=== PATIENT | male | born 1980 | race African-American/Black ===

== ENCOUNTER 2019-04-29 20:03 | Emergency (ER) | payer MEDICAID ==
[~2019-04-29] VITALS: Ht 162.6 cm; Wt 48.0 kg
[~2019-04-29 20:03] MED LIST: ALBU17AE26
[2019-04-29 22:30] VITALS: BP 130/80
== END 2019-04-29 23:35 | disposition left against medical advice (07) ==
LOC: ER 20:03
DX: R53.1 Weakness (principal); R42 Dizziness and giddiness; R51 Headache; Z53.21 Procedure and treatment not carried out due to patient leaving prior to being seen by health care provider

== ENCOUNTER 2019-11-06 13:28 | Emergency (ER) | payer MEDICAID ==
[~2019-11-06] VITALS: Ht 172.7 cm; Wt 68.0 kg
[2019-11-06] MEDS ORDERED: LORAZEPAM 2MG/ML CPJ IM ONE (14:00)
[2019-11-06 15:06] LABS: BASOPHILS % 0.7 % (0.0-2.0); EOSINOPHILS % 0.4 % (0.0-5.0); HEMATOCRIT. 38.5 % (42.0-52.0); HEMOGLOBIN. 13.5 g/dL (14.0-18.0); LYMPHOCYTES % 14.4 % (20.0-50.0); MEAN CORPUSCULAR HEMOGLOBIN 32.1 pg (28.0-32.0); MEAN CORPUSCULAR VOLUME 91.3 fL (80.0-94.0); MEAN PLATELET VOLUME 7.4 fl (7.4-10.4); MONOCYTES % 7.5 % (2.0-8.0); PLATELET 287 x1000/uL (130-400); RED BLOOD CELL COUNT 4.22 mill/uL (4.7-6.1); RED CELL DISTRIBUTION WIDTH 13.7 % (11.6-14.6)
[2019-11-06 15:09] LABS: CHLORIDE 105 mEq/L (98-107)
[2019-11-06 15:14] LABS: ETHANOL BLOOD < 10 mg/dL
[2019-11-06] MEDS ORDERED: POTASSIUM CHLORIDE 20MEQ TABLET SR PO ONE (15:15)
[2019-11-06 19:15] LABS: CLARITY URINE CLEAR (CLEAR); COLOR URINE DARK YELLOW (YELLOW); KETONES URINE 1+ (NEGATIVE); LEUKOCYTE ESTERASE URINE NEGATIVE (NEGATIVE); NITRITE URINE NEGATIVE (NEGATIVE); OCCULT BLOOD URINE TRACE (NEGATIVE); PROTEIN URINE TRACE (NEGATIVE); SPECIFIC GRAVITY URINE 1.029 (1.005-1.030)
[2019-11-06 19:27] LABS: *AMPHETAMINES SCREEN URINE PRESUMTIVE POSITIVE (NEGATIVE); *BARBITURATES SCREEN URINE NEGATIVE (NEGATIVE); *BENZODIAZEPINES SCREEN URINE NEGATIVE (NEGATIVE); *COCAINE SCREEN URINE NEGATIVE (NEGATIVE); METHADONE URINE SCREEN NEGATIVE (NEGATIVE); OPIATES URINE SCREEN NEGATIVE (NEGATIVE); PHENCYCLIDINE URINE SCREEN NEGATIVE (NEGATIVE)
[2019-11-06 19:28] LABS: CANNABINOID URINE SCREEN NEGATIVE (NEGATIVE)
[2019-11-07 11:32] VITALS: BP 110/80
== END 2019-11-07 11:54 | disposition home or self-care (01) ==
LOC: ER 13:38
DX: F29 Unspecified psychosis not due to a substance or known physiological condition (principal); E87.6 Hypokalemia; J45.909 Unspecified asthma, uncomplicated
CPT/HCPCS: 36415; 80053; 80305; 80307; 80320; 80329; 81003; 85025; 96372; 99285; J2060; G0480

== ENCOUNTER 2020-03-05 18:37 | Emergency (ER) | payer MEDICAID ==
[~2020-03-05] VITALS: Ht 162.6 cm; Wt 59.0 kg
[2020-03-05 20:37] LABS: BASOPHILS % 0.7 % (0.0-2.0); EOSINOPHILS % 0.9 % (0.0-5.0); HEMATOCRIT. 43.6 % (42.0-52.0); HEMOGLOBIN. 14.2 g/dL (14.0-18.0); LYMPHOCYTES % 19.3 % (20.0-50.0); MONOCYTES % 6.2 % (2.0-8.0); NEUTROPHILS % 72.9 % (40.0-76.0); PLATELET 271 x1000/uL (130-400); RED BLOOD CELL COUNT 4.74 mill/uL (4.7-6.1); RED CELL DISTRIBUTION WIDTH 14.5 % (11.6-14.6)
[2020-03-05 20:38] LABS: CLARITY URINE CLEAR (CLEAR); COLOR URINE YELLOW (YELLOW); KETONES URINE NEGATIVE (NEGATIVE); LEUKOCYTE ESTERASE URINE 1+ (NEGATIVE); NITRITE URINE NEGATIVE (NEGATIVE); OCCULT BLOOD URINE NEGATIVE (NEGATIVE); PROTEIN URINE NEGATIVE (NEGATIVE); SPECIFIC GRAVITY URINE 1.023 (1.005-1.030); UROBILINOGEN URINE 0.2 E.U./dL (0.2-1.0)
[2020-03-05 20:44] LABS: CHLORIDE 109 mEq/L (98-107)
[2020-03-05 20:47] LABS: *AMPHETAMINES SCREEN URINE PRESUMTIVE POSITIVE (NEGATIVE); *BARBITURATES SCREEN URINE NEGATIVE (NEGATIVE); *BENZODIAZEPINES SCREEN URINE NEGATIVE (NEGATIVE); *COCAINE SCREEN URINE NEGATIVE (NEGATIVE); METHADONE URINE SCREEN NEGATIVE (NEGATIVE); OPIATES URINE SCREEN NEGATIVE (NEGATIVE)
[2020-03-05 20:48] LABS: CANNABINOID URINE SCREEN NEGATIVE (NEGATIVE); PHENCYCLIDINE URINE SCREEN NEGATIVE (NEGATIVE)
[2020-03-05 20:49] LABS: ETHANOL BLOOD < 10 mg/dL
[2020-03-07] MEDS: QUETIAPINE FUMARATE 25MG TABLET PO SCH (14:32)
[2020-03-08] MEDS: QUETIAPINE FUMARATE 25MG TABLET PO SCH (12:00)
[2020-03-08 16:00] VITALS: BP 113/82
== END 2020-03-08 19:37 | disposition home or self-care (01) ==
LOC: ER 18:37
DX: F15.10 Other stimulant abuse, uncomplicated (principal); U07.1 COVID-19; R45.1 Restlessness and agitation; R45.850 Homicidal ideations; F20.9 Schizophrenia, unspecified; F31.9 Bipolar disorder, unspecified; J45.909 Unspecified asthma, uncomplicated; Z59.0 Homelessness; Z75.1 Person awaiting admission to adequate facility elsewhere
CPT/HCPCS: 36415; 80053; 80305; 80320; 81003; 85025; 87635; 99283; G0480

== ENCOUNTER 2021-01-14 08:52 | Emergency (ER) | payer MEDICAID, OTHER ==
[~2021-01-14] VITALS: Ht 162.6 cm; Wt 70.0 kg
[2021-01-14 09:02] VITALS: BP 135/95
[2021-01-14] MEDS ORDERED: QUET400T MT (09:24)
[2021-01-14] MEDS ORDERED: OLAN10TA32 MT (09:24)
[2021-01-14] MEDS ORDERED: BENZ100C86 MT (09:24)
== END 2021-01-14 09:32 | disposition home or self-care (01) ==
LOC: ER 08:52
DX: Z76.0 Encounter for issue of repeat prescription (principal); J45.909 Unspecified asthma, uncomplicated; Z86.59 Personal history of other mental and behavioral disorders
CPT/HCPCS: 99281; 99283

== ENCOUNTER 2021-10-17 02:17 | Emergency (ER) | payer OTHER ==
[~2021-10-17] VITALS: Ht 162.6 cm; Wt 55.0 kg
[~2021-10-17 02:17] MED LIST changes: +BENZ100C86 MT; +OLAN10TA32 MT; +QUET400T MT
[2021-10-17 02:24] VITALS: BP 156/102
[2021-10-17] MEDS ORDERED: MIRT-89 PO (06:53)
[2021-10-17] MEDS ORDERED: QUET300T2 PO (06:53)
[2021-10-17] MEDS ORDERED: PROM5SYR PO (06:53)
[2021-10-17] MEDS ORDERED: PROM6.254 PO (06:55)
== END 2021-10-17 07:00 | disposition home or self-care (01) ==
LOC: ER 02:17
DX: Z76.0 Encounter for issue of repeat prescription (principal); Z20.822 Contact with and (suspected) exposure to COVID-19; F20.9 Schizophrenia, unspecified; J45.909 Unspecified asthma, uncomplicated; F31.9 Bipolar disorder, unspecified; F15.10 Other stimulant abuse, uncomplicated
CPT/HCPCS: 87426; 99283

== ENCOUNTER 2022-05-25 00:56 | Emergency (ER) | payer MEDICAID, OTHER ==
[~2022-05-25] VITALS: Ht 162.6 cm; Wt 59.0 kg
[~2022-05-25 00:56] MED LIST changes: +MIRT-89 PO; +PROM6.254 PO; +QUET300T2 PO
[2022-05-25] MEDS ORDERED: LORAZEPAM 2MG/ML CPJ IM STA (01:37)
[2022-05-25] MEDS ORDERED: HALOPERIDOL LACTATE 5MG/ML VIAL IM STA (01:37)
[2022-05-25] MEDS ORDERED: DIPHENHYDRAMINE 50MG/ML VIAL IM STA (01:37)
[2022-05-25 02:14] LABS: BASOPHILS % 0.7 % (0.0-2.0); EOSINOPHILS % 0.4 % (0.0-5.0); HEMATOCRIT. 44.5 % (42.0-52.0); HEMOGLOBIN. 15.3 g/dL (14.0-18.0); LYMPHOCYTES % 17.5 % (20.0-50.0); MEAN CORPUSCULAR HEMOGLOBIN 30.9 pg (28.0-32.0); MEAN CORPUSCULAR VOLUME 90.2 fL (80.0-94.0); MEAN PLATELET VOLUME 7.2 fl (7.4-10.4); MONOCYTES % 11.2 % (2.0-8.0); NEUTROPHILS % 70.2 % (40.0-76.0); PLATELET 374 x1000/uL (130-400); RED BLOOD CELL COUNT 4.94 mill/uL (4.7-6.1); RED CELL DISTRIBUTION WIDTH 14.1 % (11.6-14.6)
[2022-05-25 02:24] LABS: CHLORIDE 103 mEq/L (98-107)
[2022-05-25 02:40] LABS: CREATINE KINASE 371 IU/L (39-308); ETHANOL BLOOD < 10 mg/dL
[2022-05-25] MEDS ORDERED: ALBU6.7H3 INH (10:58)
[2022-05-25] MEDS ORDERED: QUET300T2 PO (10:58)
[2022-05-25] MEDS ORDERED: PROM6.254 PO (10:59)
[2022-05-25 11:04] VITALS: BP 110/66
== END 2022-05-25 11:05 | disposition home or self-care (01) ==
LOC: ER 01:03
DX: F20.89 Other schizophrenia (principal); R45.850 Homicidal ideations; F15.10 Other stimulant abuse, uncomplicated; Z20.822 Contact with and (suspected) exposure to COVID-19; Z78.1 Physical restraint status
CPT/HCPCS: 36415; 80053; 80307; 80320; 80329; 82550; 84443; 85025; 87426; 96372; 99285; C9803; J1200; J1630; J2060; Z7610; G0480

== ENCOUNTER 2022-10-12 18:51 | Emergency (ER) | payer MEDICAID, OTHER ==
[~2022-10-12] VITALS: Ht 162.6 cm; Wt 125.0 kg
[~2022-10-12 18:51] MED LIST changes: +ALBU6.7H3 INH; +PROM6.2525 PO; -PROM6.254 PO
[2022-10-12 19:22] VITALS: O2SAT 100
[2022-10-12 20:41] LABS: BASOPHILS % 0.9 % (0.0-2.0); EOSINOPHILS % 3.7 % (0.0-5.0); HEMATOCRIT. 38.8 % (42.0-52.0); HEMOGLOBIN. 12.9 g/dL (14.0-18.0); LYMPHOCYTES % 26.1 % (20.0-50.0); MEAN CORPUSCULAR HEMOGLOBIN 30.9 pg (28.0-32.0); MEAN CORPUSCULAR HGB CONC 33.3 g/dL (31.0-37.0); MEAN CORPUSCULAR VOLUME 92.8 fL (80.0-94.0); MEAN PLATELET VOLUME 7.1 fl (7.4-10.4); MONOCYTES % 14.9 % (2.0-8.0); NEUTROPHILS % 54.4 % (40.0-76.0); PLATELET 254 x1000/uL (130-400); RED BLOOD CELL COUNT 4.18 mill/uL (4.7-6.1); RED CELL DISTRIBUTION WIDTH 14.7 % (11.6-14.6); WHITE BLOOD COUNT 4.5 x1000/uL (4.5-11.0)
[2022-10-12 20:44] LABS: CHLORIDE 107 mEq/L (98-107); INDEX HEMOLYSI 1 (1-3); INDEX ICTERIC 1 (1-4); INDEX LIPEMIC 1 (1-3); POTASSIUM 3.4 mEq/L (3.5-5.1); SODIUM 140 mEq/L (136-145)
[2022-10-12 20:46] LABS: *AMPHETAMINES SCREEN URINE PRESUMTIVE POSITIVE (NEGATIVE); *BARBITURATES SCREEN URINE NEGATIVE (NEGATIVE); *BENZODIAZEPINES SCREEN URINE NEGATIVE (NEGATIVE); *COCAINE SCREEN URINE NEGATIVE (NEGATIVE); CANNABINOID URINE SCREEN NEGATIVE (NEGATIVE); ECSTASY MDMA SCREEN URINE NEGATIVE (NEGATIVE); METHADONE URINE SCREEN NEGATIVE (NEGATIVE); OPIATES URINE SCREEN NEGATIVE (NEGATIVE); PHENCYCLIDINE URINE SCREEN NEGATIVE (NEGATIVE)
[2022-10-12 20:52] LABS: ACETAMINOPHEN <2 ug/mL ug/mL (10-30); ALANINE AMINOTRANSFERASE 54 IU/L (13-61); ASPARTATE AMINOTRANSFERASE 27 IU/L (15-37); BILIRUBIN TOTAL 0.5 mg/dL (0.1-1.0); CALCIUM 8.9 mg/dL (8.5-10.1); CARBON DIOXIDE 29 mEq/L (21-32); CREATININE 1.1 mg/dL (0.6-1.3); ETHANOL BLOOD < 10 mg/dL (-10); GLUCOSE 88 mg/dL (70-105); PROTEIN TOTAL 7.4 g/dL (6.0-8.3); UREA NITROGEN BLOOD 14 mg/dL (7-21)
[2022-10-13 20:46] VITALS: BP 105/61; PULSE 88; RESP 17; TEMP 98.4
== END 2022-10-13 21:18 ==
LOC: ER 18:51
DX: R45.850 Homicidal ideations (principal); F15.10 Other stimulant abuse, uncomplicated; Z20.822 Contact with and (suspected) exposure to COVID-19
CPT/HCPCS: 80053; 80305; 80307; 80329; 80320; 85025; 36415; 99283; 87426; C9803; G0480

== ENCOUNTER 2022-11-12 18:38 | Emergency (ER) | payer OTHER ==
[~2022-11-12] VITALS: Ht 172.7 cm; Wt 68.0 kg
[2022-11-12 18:49] VITALS: BP 147/81; PULSE 119; RESP 20; TEMP 98.3; O2SAT 99
[2022-11-12] MEDS ORDERED: PROM6.2525 MT (20:38)
[2022-11-12] MEDS ORDERED: QUET300T2 MT (20:38)
[2022-11-12] MEDS ORDERED: ALBU6.7H3 INH (20:38)
[2022-11-12] MEDS ORDERED: MIRT-111 MT (20:38)
== END 2022-11-12 21:02 | disposition home or self-care (01) ==
LOC: ER 18:38
DX: Z76.0 Encounter for issue of repeat prescription (principal); J45.909 Unspecified asthma, uncomplicated; F31.9 Bipolar disorder, unspecified; I10 Essential (primary) hypertension; F20.9 Schizophrenia, unspecified; F15.10 Other stimulant abuse, uncomplicated; Z79.899 Other long term (current) drug therapy
CPT/HCPCS: 99283

== ENCOUNTER 2022-11-21 16:33 | Emergency (ER) | payer OTHER ==
[~2022-11-21] VITALS: Ht 170.2 cm; Wt 54.5 kg
[~2022-11-21 16:33] MED LIST changes: +MIRT-111 MT; +PROM6.2525 MT; +QUET300T2 MT
[2022-11-21 16:54] VITALS: BP 174/109; PULSE 87; RESP 18; TEMP 98.7; O2SAT 100
[2022-11-21] MEDS ORDERED: ALBU6.7H3 INH (19:12)
[2022-11-21] MEDS ORDERED: PROM6.2525 PO (19:12)
== END 2022-11-21 20:54 | disposition home or self-care (01) ==
LOC: ER 16:33
DX: J45.909 Unspecified asthma, uncomplicated (principal); R05.9 Cough, unspecified; F31.9 Bipolar disorder, unspecified; I10 Essential (primary) hypertension; F20.9 Schizophrenia, unspecified; F15.90 Other stimulant use, unspecified, uncomplicated; Z76.0 Encounter for issue of repeat prescription
CPT/HCPCS: 71046; 99283

== ENCOUNTER 2022-12-03 19:59 | Emergency (ER) | payer OTHER ==
[~2022-12-03] VITALS: Ht 160 cm; Wt 58.9 kg
[~2022-12-03 19:59] MED LIST changes: -PROM6.2525 MT; -PROM6.2525 PO; +PROM6.2527 MT; +PROM6.2527 PO
[2022-12-03 20:08] VITALS: BP 154/115; PULSE 104; RESP 18; TEMP 98.7; O2SAT 100
[2022-12-03] MEDS ORDERED: ALBU6.7H15 INH (22:42)
[2022-12-03] MEDS ORDERED: AMLO2.5T2 MT (22:42)
[2022-12-03] MEDS ORDERED: PROM6.2527 MT (22:42)
[2022-12-03] MEDS ORDERED: MIRT-111 MT (22:42)
== END 2022-12-03 23:21 | disposition home or self-care (01) ==
LOC: ER 19:59
DX: Z76.0 Encounter for issue of repeat prescription (principal); J45.909 Unspecified asthma, uncomplicated; I10 Essential (primary) hypertension; F20.9 Schizophrenia, unspecified; F31.9 Bipolar disorder, unspecified; Z79.899 Other long term (current) drug therapy; F15.10 Other stimulant abuse, uncomplicated
CPT/HCPCS: 99281; 99283

== ENCOUNTER 2022-12-06 09:59 | Emergency (ER) | payer OTHER ==
[~2022-12-06] VITALS: Ht 167.6 cm; Wt 70.0 kg
[~2022-12-06 09:59] MED LIST changes: +ALBU6.7H15 INH; +AMLO2.5T2 MT
[2022-12-06 10:02] VITALS: PULSE 89; RESP 17
[2022-12-06] MEDS ORDERED: PROM6.2527 MT (10:12)
[2022-12-06 10:25] VITALS: BP 127/84; TEMP 98.6; O2SAT 100
== END 2022-12-06 10:36 | disposition home or self-care (01) ==
LOC: ER 09:59
DX: Z76.0 Encounter for issue of repeat prescription (principal); F15.10 Other stimulant abuse, uncomplicated; Z98.890 Other specified postprocedural states; Z86.59 Personal history of other mental and behavioral disorders
CPT/HCPCS: 99283

== ENCOUNTER 2022-12-22 19:42 | Emergency (ER) | payer OTHER ==
[~2022-12-22] VITALS: Ht 162.6 cm; Wt 62.0 kg
[2022-12-22 20:34] VITALS: BP 152/105; PULSE 103; RESP 14; TEMP 96.2; O2SAT 99
[2022-12-22] MEDS ORDERED: PROM6.2527 MT (23:52)
[2022-12-22] MEDS ORDERED: ALBU6.7H15 INH (23:52)
[2022-12-22] MEDS ORDERED: OLAN10TA32 MT ×2 (23:52)
[2022-12-22] MEDS ORDERED: MIRT-111 MT (23:52)
[2022-12-22] MEDS ORDERED: QUET300T2 MT ×2 (23:52)
== END 2022-12-23 00:25 | disposition home or self-care (01) ==
LOC: ER 20:23
DX: Z76.0 Encounter for issue of repeat prescription (principal); F15.10 Other stimulant abuse, uncomplicated; Z79.899 Other long term (current) drug therapy
CPT/HCPCS: 99281

== ENCOUNTER 2023-01-02 20:10 | Emergency (ER) | payer OTHER ==
[~2023-01-02 20:10] MED LIST changes: -OLAN10TA32 MT; -QUET300T2 MT
== END 2023-01-03 03:41 | disposition left against medical advice (07) ==
LOC: ER 20:10
DX: Z53.21 Procedure and treatment not carried out due to patient leaving prior to being seen by health care provider (principal)

== ENCOUNTER 2023-06-09 11:14 | Emergency (ER) | payer OTHER ==
[~2023-06-09] VITALS: Ht 162.6 cm; Wt 54.5 kg
[~2023-06-09 11:14] MED LIST changes: +AMLO2.5T45 MT; +D-ME473S50 PO; +FAMO-135 MT; +MIRT-90 MT; +QUET300T2 MT
[2023-06-09 11:29] VITALS: O2SAT 99
[2023-06-09] MEDS ORDERED: ALBU6.7H15 INH (12:09)
[2023-06-09] MEDS ORDERED: QUET300T2 PO (12:09)
[2023-06-09] MEDS ORDERED: AMLO2.5T45 MT (12:09)
[2023-06-09] MEDS ORDERED: MIRT-111 MT (12:09)
[2023-06-09] MEDS ORDERED: PROM6.2527 PO (12:09)
[2023-06-09 12:47] VITALS: BP 134/87; PULSE 84; RESP 18; TEMP 98.2
== END 2023-06-09 13:00 | disposition home or self-care (01) ==
LOC: ER 11:14
DX: F41.9 Anxiety disorder, unspecified (principal); F15.10 Other stimulant abuse, uncomplicated; J45.909 Unspecified asthma, uncomplicated; Z76.0 Encounter for issue of repeat prescription; Z79.899 Other long term (current) drug therapy; Z86.59 Personal history of other mental and behavioral disorders
CPT/HCPCS: 99281

== ENCOUNTER 2023-09-04 11:27 | Emergency (ER) | payer OTHER ==
[~2023-09-04] VITALS: Ht 162.6 cm; Wt 55.0 kg
[2023-09-04] MEDS ORDERED: PROM6.2527 MT (11:55)
[2023-09-04] MEDS ORDERED: MIRT-90 MT (11:55)
[2023-09-04] MEDS ORDERED: ALBU6.7H15 INH (11:55)
[2023-09-04] MEDS ORDERED: QUET300T2 PO (11:55)
[2023-09-04 12:06] VITALS: BP 170/112; PULSE 96; RESP 18; TEMP 98.3
[2023-09-04] MEDS ORDERED: AMLO5TAB88 PO (12:07)
== END 2023-09-04 14:08 | disposition home or self-care (01) ==
LOC: ER 11:27
DX: F99 Mental disorder, not otherwise specified (principal); I10 Essential (primary) hypertension; F41.9 Anxiety disorder, unspecified; J45.909 Unspecified asthma, uncomplicated; F31.9 Bipolar disorder, unspecified; F20.9 Schizophrenia, unspecified; F15.10 Other stimulant abuse, uncomplicated; Z79.899 Other long term (current) drug therapy; Z76.0 Encounter for issue of repeat prescription
CPT/HCPCS: 99281; 99283

== ENCOUNTER 2023-09-10 03:29 | Emergency (ER) | payer OTHER ==
[~2023-09-10 03:29] MED LIST changes: +AMLO5TAB88 PO
[2023-09-11] MEDS ORDERED: PROM6.2527 MT (08:32)
[2023-09-11] MEDS ORDERED: ALBU6.7H15 INH (08:32)
[2023-09-11] MEDS ORDERED: MIRT-89 PO (08:32)
== END 2023-09-10 05:01 | disposition left against medical advice (07) ==
LOC: ER 03:29
DX: R05.9 Cough, unspecified (principal); R06.2 Wheezing; Z53.21 Procedure and treatment not carried out due to patient leaving prior to being seen by health care provider

== ENCOUNTER 2023-09-10 23:36 | Emergency (ER) | payer OTHER ==
[2023-09-10 23:52] VITALS: PULSE 100
[2023-09-11] MEDS ORDERED: PROM6.2527 MT (08:32)
[2023-09-11] MEDS ORDERED: ALBU6.7H15 INH (08:32)
[2023-09-11] MEDS ORDERED: MIRT-89 PO (08:32)
== END 2023-09-11 01:34 | disposition left against medical advice (07) ==
LOC: ER 23:36
DX: R42 Dizziness and giddiness (principal); Z53.21 Procedure and treatment not carried out due to patient leaving prior to being seen by health care provider

== ENCOUNTER 2023-09-11 03:49 | Emergency (ER) | payer OTHER ==
[~2023-09-11] VITALS: Ht 162.6 cm; Wt 62.0 kg
[2023-09-11 03:56] VITALS: O2SAT 99
[2023-09-11 05:06] LABS: BASOPHILS % 0.7 % (0.0-2.0); EOSINOPHILS % 1.6 % (0.0-5.0); HEMATOCRIT. 47.4 % (42.0-52.0); HEMOGLOBIN. 16.1 g/dL (14.0-18.0); LYMPHOCYTES % 16.8 % (20.0-50.0); MEAN CORPUSCULAR HGB CONC 33.9 g/dL (31.0-37.0); MEAN CORPUSCULAR VOLUME 91.6 fL (80.0-94.0); MEAN PLATELET VOLUME 7.5 fl (7.4-10.4); MONOCYTES % 8.8 % (2.0-8.0); NEUTROPHILS % 72.1 % (40.0-76.0); PLATELET 336 x1000/uL (130-400); RED BLOOD CELL COUNT 5.17 mill/uL (4.7-6.1); RED CELL DISTRIBUTION WIDTH 14.6 % (11.6-14.6); WHITE BLOOD COUNT 6.2 x1000/uL (4.5-11.0)
[2023-09-11 05:15] LABS: CHLORIDE 101 mEq/L (98-107); POTASSIUM 3.7 mEq/L (3.5-5.1); SODIUM 138 mEq/L (136-145)
[2023-09-11 05:16] LABS: CARBON DIOXIDE 32 mEq/L (21-32)
[2023-09-11 05:21] LABS: CREATININE 0.9 mg/dL (0.6-1.3); GLUCOSE 103 mg/dL (70-105); UREA NITROGEN BLOOD 8 mg/dL (9-23)
[2023-09-11 05:22] LABS: TROPONIN I HIGH SENSITIVITY 4 ng/L (3.0-53)
[2023-09-11] MEDS ORDERED: PROM6.2527 MT (08:32)
[2023-09-11] MEDS ORDERED: ALBU6.7H15 INH (08:32)
[2023-09-11] MEDS ORDERED: MIRT-89 PO (08:32)
[2023-09-11 08:45] VITALS: BP 105/61; PULSE 89; RESP 16; TEMP 98.2
== END 2023-09-11 08:46 | disposition home or self-care (01) ==
LOC: ER 03:49
DX: G47.00 Insomnia, unspecified (principal); F41.9 Anxiety disorder, unspecified; J45.909 Unspecified asthma, uncomplicated; F31.9 Bipolar disorder, unspecified; F20.9 Schizophrenia, unspecified; F15.10 Other stimulant abuse, uncomplicated; Z79.899 Other long term (current) drug therapy; Z76.0 Encounter for issue of repeat prescription
CPT/HCPCS: 80048; 85025; 84484; 36415; 93005; 99284; Z7610 ×3

== ENCOUNTER 2023-10-04 18:01 | Emergency (ER) | payer OTHER ==
[~2023-10-04] VITALS: Ht 160 cm; Wt 61.0 kg
[2023-10-04 18:07] VITALS: BP 181/116; PULSE 73; RESP 20; TEMP 98.1; O2SAT 100
[2023-10-04] MEDS ORDERED: MIRT-111 MT (19:50)
[2023-10-04] MEDS ORDERED: ALBU6.7H15 INH (19:50)
[2023-10-04] MEDS ORDERED: QUET300T2 MT (19:50)
== END 2023-10-04 20:48 | disposition home or self-care (01) ==
LOC: ER 18:01
DX: Z76.0 Encounter for issue of repeat prescription (principal); J45.909 Unspecified asthma, uncomplicated; I10 Essential (primary) hypertension; Z86.59 Personal history of other mental and behavioral disorders
CPT/HCPCS: 99281

== ENCOUNTER 2023-11-18 20:47 | Emergency (ER) | payer OTHER ==
[~2023-11-18] VITALS: Ht 162.6 cm; Wt 62.0 kg
[~2023-11-18 20:47] MED LIST changes: -MIRT-111 MT; +MIRT-145 MT
[2023-11-18 20:59] VITALS: O2SAT 99
[2023-11-18 21:33] VITALS: BP 148/100; PULSE 90; TEMP 98.4; O2SAT 100
[2023-11-18] MEDS ORDERED: PROM6.2527 MT (22:14)
[2023-11-18] MEDS ORDERED: MIRT-145 MT (22:14)
[2023-11-18] MEDS ORDERED: ALBU18HF2 IH (22:14)
[2023-11-18] MEDS: LORATADINE 10MG TABLET PO SCH (22:15)
[2023-11-18] MEDS: DEXAMETHASONE 10 MG/ML VIAL IM ONE (23:12)
[2023-11-18] MEDS: DIPHENHYDRAMINE HCL/ZINC ACET 28 GM CREAM TOP STA (23:12)
[2023-11-18 23:15] VITALS: RESP 16
== END 2023-11-18 23:31 | disposition home or self-care (01) ==
LOC: ER 20:56
DX: R21 Rash and other nonspecific skin eruption (principal); F41.9 Anxiety disorder, unspecified; J45.909 Unspecified asthma, uncomplicated; F31.9 Bipolar disorder, unspecified; I10 Essential (primary) hypertension; F20.9 Schizophrenia, unspecified; F15.10 Other stimulant abuse, uncomplicated; Z79.899 Other long term (current) drug therapy; Z76.0 Encounter for issue of repeat prescription
CPT/HCPCS: 96372; 99283; J1100; Z7610

== ENCOUNTER 2023-12-04 18:13 | Emergency (ER) | payer OTHER ==
[~2023-12-04] VITALS: Ht 162.6 cm; Wt 61.0 kg
[~2023-12-04 18:13] MED LIST changes: +ALBU18HF2 IH
[2023-12-04 18:14] VITALS: BP 133/97; RESP 16; TEMP 98.4; O2SAT 100
[2023-12-04 18:22] VITALS: PULSE 118; O2SAT 100
[2023-12-04] MEDS ORDERED: DEXAMETHASONE 10 MG/ML VIAL IM ONE (20:45)
== END 2023-12-04 21:15 | disposition left against medical advice (07) ==
LOC: ER 18:13
DX: R21 Rash and other nonspecific skin eruption (principal); F15.10 Other stimulant abuse, uncomplicated; F41.9 Anxiety disorder, unspecified; I10 Essential (primary) hypertension; F31.9 Bipolar disorder, unspecified; Z79.899 Other long term (current) drug therapy; Z86.59 Personal history of other mental and behavioral disorders
CPT/HCPCS: 99281

== ENCOUNTER 2024-04-06 19:31 | Emergency (ER) | payer OTHER ==
[~2024-04-06] VITALS: Ht 162.6 cm; Wt 53.2 kg
[2024-04-06 19:45] VITALS: O2SAT 96
[2024-04-06 22:25] VITALS: BP 163/92; PULSE 122; RESP 15; TEMP 37; O2SAT 99
== END 2024-04-07 00:26 | disposition home or self-care (01) ==
LOC: ER 19:31
DX: Z76.0 Encounter for issue of repeat prescription (principal); F20.9 Schizophrenia, unspecified; I10 Essential (primary) hypertension; J45.909 Unspecified asthma, uncomplicated; F15.90 Other stimulant use, unspecified, uncomplicated; Z79.899 Other long term (current) drug therapy
CPT/HCPCS: 99281

== ENCOUNTER 2024-04-07 00:57 | Emergency (ER) | payer OTHER ==
[~2024-04-07] VITALS: Ht 162.6 cm; Wt 53.2 kg
[2024-04-07 01:03] VITALS: O2SAT 70
[2024-04-07 02:20] VITALS: BP 163/92; PULSE 96; RESP 15; TEMP 37; O2SAT 90
== END 2024-04-07 08:00 | disposition left against medical advice (07) ==
LOC: ER 00:57
DX: Z00.00 Encounter for general adult medical examination without abnormal findings (principal); Z53.21 Procedure and treatment not carried out due to patient leaving prior to being seen by health care provider
CPT/HCPCS: Z7610 ×2

== ENCOUNTER 2024-04-27 19:03 | Emergency (ER) | payer OTHER ==
[~2024-04-27] VITALS: Ht 162.6 cm; Wt 58.9 kg
[2024-04-27 19:06] VITALS: O2SAT 100
[2024-04-27 19:13] VITALS: BP 155/103; PULSE 111; RESP 16; TEMP 36.6; O2SAT 100
== END 2024-04-27 22:37 | disposition left against medical advice (07) ==
LOC: ER 19:03
DX: R05.9 Cough, unspecified (principal); J45.909 Unspecified asthma, uncomplicated; I10 Essential (primary) hypertension; F20.9 Schizophrenia, unspecified; Z53.21 Procedure and treatment not carried out due to patient leaving prior to being seen by health care provider

== ENCOUNTER 2024-05-01 19:39 | Emergency (ER) | payer OTHER ==
[~2024-05-01] VITALS: Ht 162.6 cm; Wt 59.1 kg
[2024-05-01 19:41] VITALS: O2SAT 100
[2024-05-01 20:07] VITALS: BP 134/94; PULSE 102; RESP 18; TEMP 36.8; O2SAT 100
== END 2024-05-01 19:50 | disposition left against medical advice (07) ==
LOC: ER 19:39
DX: Z76.0 Encounter for issue of repeat prescription (principal); Z53.21 Procedure and treatment not carried out due to patient leaving prior to being seen by health care provider

== ENCOUNTER 2024-07-31 10:05 | Emergency (ER) | payer OTHER ==
[~2024-07-31] VITALS: Ht 162.6 cm; Wt 63.0 kg
[2024-07-31 10:21] VITALS: O2SAT 99
[2024-07-31] MEDS ORDERED: PROM6.2527 MT (10:50)
[2024-07-31] MEDS ORDERED: RISP3TAB76 MT (10:50)
[2024-07-31] MEDS ORDERED: AMLO5TAB88 MT (10:50)
[2024-07-31] MEDS ORDERED: QUET300T2 MT (10:50)
[2024-07-31] MEDS ORDERED: ALBU18HF2 IH (10:50)
[2024-07-31 10:55] VITALS: BP 142/100; PULSE 85; RESP 14; TEMP 37; O2SAT 100
== END 2024-07-31 11:09 | disposition home or self-care (01) ==
LOC: ER 10:05
DX: Z76.0 Encounter for issue of repeat prescription (principal); F15.10 Other stimulant abuse, uncomplicated; J45.909 Unspecified asthma, uncomplicated; F20.9 Schizophrenia, unspecified; I10 Essential (primary) hypertension; Z79.899 Other long term (current) drug therapy
CPT/HCPCS: 99281